=== PATIENT | female | born 1935 | race Two or more races ===

== ENCOUNTER 2024-03-18 12:39 | Emergency (ER) | payer OTHER ==
[~2024-03-18] VITALS: Ht 147.3 cm; Wt 49.9 kg
[~2024-03-18 12:39] MED LIST: ALTACE5 MG; CHILDREN'S ASPI81 MG; CRESTOR5 MG; GLUMETZA500 MG; HORIZANT300 MG; LEVO-T88 MCG; NASAL MIST126 ML
[2024-03-18] MEDS ORDERED: KETOROLAC TROMETHAMINE 60 MG VIAL IM ONE ×2 (15:44→15:45)
== END 2024-03-18 19:19 | disposition home or self-care (01) ==
LOC: ER 12:39
DX: S20.219A Contusion of unspecified front wall of thorax, initial encounter (principal); W19.XXXA Unspecified fall, initial encounter; Y93.89 Activity, other specified; Y92.89 Other specified places as the place of occurrence of the external cause; Y99.8 Other external cause status; E11.9 Type 2 diabetes mellitus without complications; Z79.84 Long term (current) use of oral hypoglycemic drugs
CPT/HCPCS: 71250; 72100; 96372; 99284; J1885